=== PATIENT | female | born 1945 | race Caucasian/White ===

== ENCOUNTER 2019-08-19 10:47 | Outpatient (CLI) | payer MEDICARE, SELFPAY ==
[2019-08-19 11:33] LABS: Hemoglobin A1C 7.8 % (<5.7)
[2019-08-19 12:18] LABS: Alanine Aminotransferase 24 U/L (14-59); Albumin Level 3.7 g/dL (3.4-5.0); Alkaline Phosphatase 76 U/L (46-116); Anion Gap 16.6 mmol/L (7-16); Aspartate Amino Transferase 21 U/L (15-37); Bilirubin,Total 0.4 mg/dL (0.00-1.00); Blood Urea Nitrogen 18 mg/dL (7-18); Carbon Dioxide 24 mmol/L (21-32); Chloride 101 mmol/L (98-108); Estimated Glomerular Filt Rate 41; Glucose 157 mg/dL (70-99); Osmolality Calculated 290 mOsm/kg (285-295); Potassium 3.6 mmol/L (3.5-5.1); Sodium 138 mmol/L (136-145); Thyroid Stimulating Hormone 1.23 uIU/mL (0.36-3.74); Total Protein 7.1 g/dL (6.4-8.2)
== END 2019-08-19 10:48 | disposition home or self-care (01) ==
PROVIDERS: PCP Family Medicine; Visit Provider Family Medicine
DX: E03.9 Hypothyroidism, unspecified (principal); E11.9 Type 2 diabetes mellitus without complications; I10 Essential (primary) hypertension
CPT/HCPCS: 36415; 80053; 83036; 84443

== ENCOUNTER 2020-02-07 11:04 | Outpatient (CLI) | payer MEDICARE, SELFPAY ==
[2020-02-07 11:27] LABS: Basophils Absolute Auto 0.08 K/mm3 (0.00-0.10); Basophils Percent Auto 0.9 % (0.0-1.0); Eosinophils Absolute Auto 0.29 K/mm3 (0.02-0.50); Eosinophils Percent Auto 3.2 % (1.0-6.0); Hematocrit 38.3 % (35.0-42.0); Hemoglobin 12.2 g/dL (11.7-13.8); Immature Granulocyte Absolute 0.02 K/mm3 (0.00-0.00); Immature Granulocyte Percent A 0.2 % (0.0-0.0); Lymphocytes Absolute Auto 2.53 K/mm3 (1.10-4.50); Lymphocytes Percent Auto 28.3 % (18.0-42.0); Mean Corpuscular HGB Conc 31.9 g/dL (32.0-36.0); Mean Corpuscular Hemoglobin 30.7 pg (27.0-31.0); Mean Corpuscular Volume 96.5 fL (78.0-102.0); Mean Platelet Volume 10.1 fl (9.2-11.8); Monocytes Percent Auto 6.7 % (2.0-11.0); Neutrophils Absolute Auto 5.4 K/mm3 (1.7-7.2); Neutrophils Percent Auto 60.7 % (50.0-70.0); Platelet Count Result 249 K/mm3 (150-420); Red Blood Count 3.97 M/mm3 (4.20-5.40); Red Cell Distribution Width 12.2 % (11.6-14.4); White Blood Count 8.9 K/mm3 (4.8-10.8)
[2020-02-07 11:59] LABS: Creatinine Urine 102.52 mg/dL (40-278); MALB Creatinine Ratio 12.6 mg/g (0-30); Microalbumin Urine Random < 13.0 mg/L
[2020-02-07 12:01] LABS: Hemoglobin A1C 7.4 % (<5.7)
[2020-02-07 12:36] LABS: Alanine Aminotransferase 23 U/L (14-59); Albumin Level 3.8 g/dL (3.4-5.0); Alkaline Phosphatase 75 U/L (46-116); Anion Gap 13 mmol/L (8-16); Aspartate Amino Transferase 14 U/L (15-37); Bilirubin,Total 0.5 mg/dL (0.00-1.00); Blood Urea Nitrogen 24 mg/dL (7-18); Calcium 9.4 mg/dL (8.5-10.1); Carbon Dioxide 23 mmol/L (21-32); Chloride 106 mmol/L (98-108); Cholesterol 133 mg/dL (0-200); Estimated Glomerular Filt Rate 46; Glucose 187 mg/dL (70-99); HDL Direct 40 mg/dL (40-60); LDL Cholesterol Calculated 49 mg/dL (<130); Osmolality Calculated 303 mOsm/kg (285-295); Sodium 142 mmol/L (136-145); Thyroid Stimulating Hormone Reflex 0.69 u/IU/mL (0.36-3.74); Total Protein 7.1 g/dL (6.4-8.2); Triglycerides 218 mg/dL (0-150)
== END 2020-02-07 11:05 | disposition home or self-care (01) ==
LOC: CHSLAB 11:06
PROVIDERS: PCP Family Medicine; Visit Provider Family Medicine
DX: E11.9 Type 2 diabetes mellitus without complications (principal); I10 Essential (primary) hypertension; E78.5 Hyperlipidemia, unspecified; Z00.00 Encounter for general adult medical examination without abnormal findings; E03.9 Hypothyroidism, unspecified
CPT/HCPCS: 36415; 80053; 80061; 82043; 83036; 84443; 85025

== ENCOUNTER 2021-02-25 12:26 | Outpatient (CLI) | payer MEDICARE, SELFPAY ==
[2021-02-25 13:01] LABS: Basophils Absolute Auto 0.07 K/mm3 (0.00-0.10); Basophils Percent Auto 0.8 % (0.0-1.0); Eosinophils Absolute Auto 0.28 K/mm3 (0.02-0.50); Eosinophils Percent Auto 3.4 % (1.0-6.0); Hematocrit 37.7 % (35.0-42.0); Hemoglobin 12.2 g/dL (11.7-13.8); Immature Granulocyte Absolute 0.03 K/mm3 (0.00-0.00); Immature Granulocyte Percent A 0.4 % (0.0-0.0); Lymphocytes Absolute Auto 3.03 K/mm3 (1.10-4.50); Lymphocytes Percent Auto 36.3 % (18.0-42.0); Mean Corpuscular HGB Conc 32.4 g/dL (32.0-36.0); Mean Corpuscular Hemoglobin 30.7 pg (27.0-31.0); Mean Corpuscular Volume 94.7 fL (78.0-102.0); Mean Platelet Volume 10.4 fl (9.2-11.8); Monocytes Absolute Auto 0.69 K/mm3 (0.10-0.90); Monocytes Percent Auto 8.3 % (2.0-11.0); Neutrophils Absolute Auto 4.2 K/mm3 (1.7-7.2); Neutrophils Percent Auto 50.8 % (50.0-70.0); Platelet Count Result 246 K/mm3 (150-420); Red Blood Count 3.98 M/mm3 (4.20-5.40); Red Cell Distribution Width 12.3 % (11.6-14.4); White Blood Count 8.3 K/mm3 (4.8-10.8)
[2021-02-25 13:12] LABS: Creatinine Urine 62.76 mg/dL (40-278); MALB Creatinine Ratio 20.7 mg/g (0-30); Microalbumin Urine Random < 13.0 mg/L
[2021-02-25 13:35] LABS: Alanine Aminotransferase 25 U/L (14-59); Albumin Level 3.6 g/dL (3.4-5.0); Alkaline Phosphatase 75 U/L (46-116); Anion Gap 13 mmol/L (8-16); Aspartate Amino Transferase 17 U/L (15-37); Bilirubin,Total 0.6 mg/dL (0.00-1.00); Blood Urea Nitrogen 22 mg/dL (7-18); Carbon Dioxide 25 mmol/L (21-32); Chloride 106 mmol/L (98-108); Cholesterol 130 mg/dL (0-200); Estimated Glomerular Filt Rate 39; Glucose 147 mg/dL (70-99); HDL Direct 44 mg/dL (40-60); LDL Cholesterol Calculated 45 mg/dL (<130); Osmolality Calculated 304 mOsm/kg (285-295); Sodium 144 mmol/L (136-145); Total Protein 6.7 g/dL (6.4-8.2); Triglycerides 207 mg/dL (0-150)
[2021-02-25 13:44] LABS: Thyroid Stimulating Hormone Reflex 1.06 u/IU/mL (0.36-3.74)
== END 2021-02-25 12:27 | disposition home or self-care (01) ==
PROVIDERS: PCP Family Medicine; Visit Provider Nurse Practitioner
DX: E11.9 Type 2 diabetes mellitus without complications (principal); E78.5 Hyperlipidemia, unspecified; I10 Essential (primary) hypertension; E03.9 Hypothyroidism, unspecified
CPT/HCPCS: 36415; 80053; 80061; 82043; 83036; 84443; 85025

== ENCOUNTER 2021-08-30 12:23 | Outpatient (CLI) | payer MEDICARE, SELFPAY ==
[2021-08-30 13:03] LABS: Hemoglobin A1C 7.2 % (<5.7)
[2021-08-30 13:22] LABS: Alanine Aminotransferase 28 U/L (14-59); Albumin Level 3.5 g/dL (3.4-5.0); Alkaline Phosphatase 78 U/L (46-116); Anion Gap 10 mmol/L (8-16); Aspartate Amino Transferase 21 U/L (15-37); Bilirubin,Total 0.5 mg/dL (0.00-1.00); Blood Urea Nitrogen 21 mg/dL (7-18); Calcium 9.1 mg/dL (8.5-10.1); Carbon Dioxide 24 mmol/L (21-32); Chloride 106 mmol/L (98-108); Estimated Glomerular Filt Rate 38; Sodium 140 mmol/L (136-145); Total Protein 6.8 g/dL (6.4-8.2)
[2021-08-30 13:23] LABS: Thyroid Stimulating Hormone Reflex 0.58 u/IU/mL (0.36-3.74)
[2021-08-30 13:26] LABS: Glucose 178 mg/dL (70-99); Osmolality Calculated 297 mOsm/kg (285-295)
== END 2021-08-30 12:24 | disposition home or self-care (01) ==
LOC: CHSLAB 12:27
PROVIDERS: PCP Family Medicine; Visit Provider Family Medicine
DX: E11.9 Type 2 diabetes mellitus without complications (principal); I10 Essential (primary) hypertension
CPT/HCPCS: 36415; 80053; 83036; 84443

== ENCOUNTER 2021-10-29 12:56 | Outpatient (CLI) | payer MEDICARE, SELFPAY ==
[2021-10-29 13:24] LABS: Add Urine Microscopic? NO; Appearance Urine Clear (Clear); Bilirubin Urine Negative (Negative); Blood Urine Negative (Negative); Color Urine Light Yellow (Yellow); Creatinine Urine 15.58 mg/dL (40-278); Glucose Urine UA Negative (Negative); Ketones Urine Negative (Negative); Leukocyte Esterase Ur Negative LEU/UL (Negative); Nitrate Urine Negative (Negative); Protein Urine Negative (Negative); Specific Grav Ur <= 1.005 (1.010-1.020); Total Protein Urine Random < 6.0 mg/dL (0.0-11.9); Ur Ttl Prot Creatinine Ratio 0.39 mg/mg (0-0.20); Urobilinogen Urine 0.2 mg/dL (0.2-1.0); pH Urine 5.5 (5.0-8.0)
[2021-10-29 13:36] LABS: Albumin Level 3.7 g/dL (3.4-5.0); Anion Gap 8 mmol/L (8-16); Blood Urea Nitrogen 21 mg/dL (7-18); Calcium 9.3 mg/dL (8.5-10.1); Carbon Dioxide 24 mmol/L (21-32); Chloride 105 mmol/L (98-108); Estimated Glomerular Filt Rate 41; Glucose 147 mg/dL (70-99); Osmolality Calculated 290 mOsm/kg (285-295); Phosphorus 4.4 mg/dL (2.6-4.7); Potassium 4.1 mmol/L (3.5-5.1); Sodium 137 mmol/L (136-145)
[2021-10-29 14:22] LABS: Erythrocyte Sedimentation Rate 29 mm/hr (0-20)
[2021-11-02 11:41] LABS: Complement C3 154 mg/dL (83-193)
[2021-11-02 13:39] LABS: Parathyroid Intact 62 pg/mL (14-64)
[2021-11-02 13:59] LABS: Lambda Light Chain 35.4 mg/L (5.7-26.3)
[2021-11-02 21:37] LABS: Complement Total CH50 >60 U/mL (31-60)
[2021-11-03 05:01] LABS: Measured Kappa Chains <1.00 mg/dL (<2.00); Measured Lambda Chains <1.00 mg/dL (<2.00); Pro/Creat Ratio 94 mg/g creat (<=114)
[2021-11-15 14:27] LABS: Creat 24 Hr 0.53; Protein,total, 24 Hr Ur 50 mg/24h
== END 2021-10-29 12:57 | disposition home or self-care (01) ==
LOC: CHSLAB 12:59
PROVIDERS: PCP Family Medicine; Visit Provider Internal Medicine Nephrology
DX: N18.31 Chronic kidney disease, stage 3a (principal)
CPT/HCPCS: 36415; 80069; 81003; 82570; 83883; 83970; 84156; 85652; 86038; 86160; 86162; 86334; 86335

== ENCOUNTER 2021-11-02 13:47 | Outpatient (CLI) | payer MEDICARE, SELFPAY ==
--- NOTE | ~2021-11-02 | US_ITS ---
EXAMINATION: US retroperitoneal comp DATE: 11/02/2021 14:43 INDICATION: Stage IIIa chronic kidney disease TECHNIQUE: Multiple ultrasound grayscale images of the kidneys were obtained. COMPARISON: None. FINDINGS: The right kidney measures 10.1 x 5.6 x 5.3 cm. There is normal echogenicity of the right kidney. The left kidney measures 7.5 x 3.2 x 3.6 cm. Diffusely increased cortical echogenicity of the left kidney with a few subcentimeter anechoic cysts. There is no hydronephrosis in either kidney. No stones jose alberto ntified. The bladder is normal. IMPRESSION: 1. Normal right kidney and moderately atrophic and echogenic left kidney which is of indeterminate e tiology. No hydronephrosis. Reviewed, dictated and finalized at location A. IMPRESSION: 1. Normal right kidney and moderately atrophic and echogenic left kidney which is of indeterminate etiology. No hydronephrosis.
== END 2021-11-02 13:48 | disposition home or self-care (01) ==
LOC: CHSIMG 13:51
PROVIDERS: PCP Family Medicine; Visit Provider Internal Medicine Nephrology
DX: N18.31 Chronic kidney disease, stage 3a (principal)
CPT/HCPCS: 76770

== ENCOUNTER 2022-02-23 15:41 | Outpatient (CLI) | payer MEDICARE, SELFPAY ==
[2022-02-23 17:31] LABS: Albumin Level 3.7 g/dL (3.4-5.0); Anion Gap 10 mmol/L (8-16); Blood Urea Nitrogen 24 mg/dL (7-18); Calcium 9.2 mg/dL (8.5-10.1); Carbon Dioxide 26 mmol/L (21-32); Chloride 106 mmol/L (98-108); Estimated Glomerular Filt Rate 38; Glucose 135 mg/dL (70-99); Osmolality Calculated 300 mOsm/kg (285-295); Phosphorus 4.6 mg/dL (2.6-4.7); Potassium 4.3 mmol/L (3.5-5.1); Sodium 142 mmol/L (136-145)
== END 2022-02-23 15:42 | disposition home or self-care (01) ==
LOC: CHSLAB 15:45
PROVIDERS: PCP Family Medicine; Visit Provider Internal Medicine Nephrology
DX: N18.31 Chronic kidney disease, stage 3a (principal)
CPT/HCPCS: 36415; 80069

== ENCOUNTER 2022-02-25 15:29 | Outpatient (CLI) | payer MEDICARE, SELFPAY ==
[2022-02-25 15:55] LABS: Creatinine Urine 201.41 mg/dL (40-278); Total Protein Urine Random 32.7 mg/dL (0.0-11.9); Ur Ttl Prot Creatinine Ratio 0.16 mg/mg (0-0.20)
== END 2022-02-25 15:30 | disposition home or self-care (01) ==
PROVIDERS: PCP Family Medicine; Visit Provider Internal Medicine Nephrology
DX: N18.31 Chronic kidney disease, stage 3a (principal)
CPT/HCPCS: 82570; 84156

== ENCOUNTER 2022-03-16 13:29 | Outpatient (CLI) | payer MEDICARE, SELFPAY ==
[2022-03-16 13:56] LABS: Basophils Absolute Auto 0.08 K/mm3 (0.00-0.10); Basophils Percent Auto 0.8 % (0.0-1.0); Eosinophils Absolute Auto 0.27 K/mm3 (0.02-0.50); Eosinophils Percent Auto 2.7 % (1.0-6.0); Hematocrit 36.7 % (35.0-42.0); Immature Granulocyte Absolute 0.03 K/mm3 (0.00-0.00); Immature Granulocyte Percent A 0.3 % (0.0-0.0); Lymphocytes Percent Auto 29.4 % (18.0-42.0); Mean Corpuscular HGB Conc 32.7 g/dL (32.0-36.0); Mean Corpuscular Hemoglobin 31.1 pg (27.0-31.0); Mean Corpuscular Volume 95.1 fL (78.0-102.0); Mean Platelet Volume 9.6 fl (9.2-11.8); Monocytes Absolute Auto 0.72 K/mm3 (0.10-0.90); Monocytes Percent Auto 7.3 % (2.0-11.0); Neutrophils Absolute Auto 5.9 K/mm3 (1.7-7.2); Neutrophils Percent Auto 59.5 % (50.0-70.0); Platelet Count Result 270 K/mm3 (150-420); Red Blood Count 3.86 M/mm3 (4.20-5.40); Red Cell Distribution Width 12.5 % (11.6-14.4); White Blood Count 9.9 K/mm3 (4.8-10.8)
[2022-03-16 14:07] LABS: Hemoglobin A1C 7.7 % (<5.7)
[2022-03-16 14:24] LABS: Creatinine Urine 116.27 mg/dL (40-278); MALB Creatinine Ratio 11.1 mg/g (0-30); Microalbumin Urine Random < 13.0 mg/L
[2022-03-16 14:50] LABS: Alanine Aminotransferase 25 U/L (14-59); Albumin Level 3.7 g/dL (3.4-5.0); Alkaline Phosphatase 73 U/L (46-116); Anion Gap 9 mmol/L (8-16); Aspartate Amino Transferase 15 U/L (15-37); Bilirubin,Total 0.5 mg/dL (0.00-1.00); Blood Urea Nitrogen 27 mg/dL (7-18); Calcium 8.9 mg/dL (8.5-10.1); Carbon Dioxide 27 mmol/L (21-32); Chloride 103 mmol/L (98-108); Cholesterol 154 mg/dL (0-200); Estimated Glomerular Filt Rate 35; Glucose 161 mg/dL (70-99); HDL Direct 49 mg/dL (40-60); LDL Cholesterol Calculated 50 mg/dL (<130); Osmolality Calculated 296 mOsm/kg (285-295); Potassium 4.2 mmol/L (3.5-5.1); Sodium 139 mmol/L (136-145); Triglycerides 276 mg/dL (0-150); Vitamin B12 317 pg/mL (193-986)
[2022-03-20 17:29] LABS: Vitamin D 25 Hydroxy 20 ng/mL (30-100)
== END 2022-03-16 13:30 | disposition home or self-care (01) ==
LOC: CHSLAB 13:31
PROVIDERS: PCP Family Medicine; Visit Provider Family Medicine
DX: N18.30 Chronic kidney disease, stage 3 unspecified (principal); E53.8 Deficiency of other specified B group vitamins; E78.5 Hyperlipidemia, unspecified; E55.9 Vitamin D deficiency, unspecified; I10 Essential (primary) hypertension; E11.9 Type 2 diabetes mellitus without complications
CPT/HCPCS: 36415; 80053; 80061; 82043; 82306; 82607; 83036; 84443; 85025

== ENCOUNTER 2022-06-22 15:47 | Outpatient (CLI) | payer MEDICARE, SELFPAY ==
[2022-06-22 16:30] LABS: Hematocrit 36.7 % (35.0-42.0); Hemoglobin 11.8 g/dL (11.7-13.8); Mean Corpuscular HGB Conc 32.2 g/dL (32.0-36.0); Mean Corpuscular Hemoglobin 30.8 pg (27.0-31.0); Mean Corpuscular Volume 95.8 fL (78.0-102.0); Mean Platelet Volume 10.5 fl (9.2-11.8); Platelet Count Result 254 K/mm3 (150-420); Red Blood Count 3.83 M/mm3 (4.20-5.40); Red Cell Distribution Width 12.2 % (11.6-14.4); White Blood Count 10.5 K/mm3 (4.8-10.8)
[2022-06-22 16:50] LABS: Creatinine Urine 216.96 mg/dL (40-278); Total Protein Urine Random 22.2 mg/dL (0.0-11.9)
[2022-06-22 16:54] LABS: Albumin Level 3.8 g/dL (3.4-5.0); Anion Gap 11 mmol/L (8-16); Blood Urea Nitrogen 26 mg/dL (7-18); Calcium 9.5 mg/dL (8.5-10.1); Carbon Dioxide 26 mmol/L (21-32); Chloride 105 mmol/L (98-108); Estimated Glomerular Filt Rate 40; Glucose 142 mg/dL (70-99); Osmolality Calculated 300 mOsm/kg (285-295); Phosphorus 4.6 mg/dL (2.6-4.7); Potassium 4.8 mmol/L (3.5-5.1); Sodium 142 mmol/L (136-145)
[2022-06-26 21:30] LABS: Parathyroid Intact 75 pg/mL (14-64)
== END 2022-06-22 15:48 | disposition home or self-care (01) ==
LOC: CHSLAB 15:50
PROVIDERS: PCP Internal Medicine Nephrology; Visit Provider Internal Medicine Nephrology
DX: E78.5 Hyperlipidemia, unspecified (principal); N18.32 Chronic kidney disease, stage 3b
CPT/HCPCS: 36415; 80069; 82570; 83970; 84156; 85027

== ENCOUNTER 2022-12-14 16:05 | Outpatient (CLI) | payer MEDICARE, SELFPAY ==
[2022-12-14 18:38] LABS: Hematocrit 36.3 % (37.0-47.0); Hemoglobin 11.6 g/dL (12.0-15.0); Mean Corpuscular Hemoglobin 30.6 pg (26-34); Mean Corpuscular Volume 95.8 fl (80-100); Mean Platelet Volume 10.7 fl (7.4-10.4); Platelet Count Result 266 k/mm3 (150-375); Red Blood Count 3.79 M/mm3 (4.2-5.4); Red Cell Distribution Width 12.4 % (11.5-14.5); White Blood Count 10.7 K/mm3 (4.5-10.0)
[2022-12-14 19:32] LABS: Alanine Aminotransferase 26 U/L (6-35); Albumin Level 4.2 g/dL (3.5-5.1); Alkaline Phosphatase 79 U/L (38-126); Anion Gap 10 mmol/L (8-16); Aspartate Amino Transferase 34 U/L (14-36); Bilirubin,Total 0.4 mg/dL (0.2-1.3); Blood Urea Nitrogen 29 mg/dL (7-17); Calcium 9.3 mg/dL (8.4-10.2); Carbon Dioxide 22 mmol/L (22-30); Chloride 109 mmol/L (98-107); Estimated Glomerular Filt Rate 40; Glucose 139 mg/dL (65-110); Potassium 4.1 mmol/L (3.4-5.0); Sodium 141 mmol/L (137-145)
[2022-12-14 19:39] LABS: Parathyroid Intact 80.9 pg/mL (7.5-53.5)
[2022-12-14 20:14] LABS: Vitamin D 25 Hydroxy 63.2 ng/mL
[2022-12-14 21:51] LABS: Hemoglobin A1C 7.7 % (<5.7)
== END 2022-12-14 16:06 | disposition home or self-care (01) ==
LOC: ANHGOSHLAB 16:07
PROVIDERS: PCP Family Medicine; Visit Provider Family Medicine
DX: E21.1 Secondary hyperparathyroidism, not elsewhere classified (principal); E78.5 Hyperlipidemia, unspecified; N18.32 Chronic kidney disease, stage 3b; E11.22 Type 2 diabetes mellitus with diabetic chronic kidney disease; I12.9 Hypertensive chronic kidney disease with stage 1 through stage 4 chronic kidney disease, or unspecified chronic kidney disease; E03.9 Hypothyroidism, unspecified
CPT/HCPCS: 36415; 80053; 80069; 82306; 83036; 83970; 84443; 85027

== ENCOUNTER 2023-01-04 18:09 | Outpatient (CLI) | payer MEDICARE, SELFPAY ==
[2023-01-04 18:35] LABS: Hematocrit 36.2 % (35.0-42.0); Hemoglobin 11.6 g/dL (11.7-13.8); Mean Corpuscular Hemoglobin 30.4 pg (27.0-31.0); Mean Corpuscular Volume 94.8 fL (78.0-102.0); Mean Platelet Volume 10.1 fl (9.2-11.8); Platelet Count Result 283 K/mm3 (150-420); Red Blood Count 3.82 M/mm3 (4.20-5.40); Red Cell Distribution Width 12.6 % (11.6-14.4); White Blood Count 10.8 K/mm3 (4.8-10.8)
[2023-01-04 19:15] LABS: Albumin Level 3.5 g/dL (3.4-5.0); Anion Gap 11 mmol/L (8-16); Blood Urea Nitrogen 31 mg/dL (7-18); Calcium 9.5 mg/dL (8.5-10.1); Carbon Dioxide 26 mmol/L (21-32); Chloride 105 mmol/L (98-108); Estimated Glomerular Filt Rate 38; Glucose 125 mg/dL (70-99); Osmolality Calculated 301 mOsm/kg (285-295); Phosphorus 4.7 mg/dL (2.6-4.7); Potassium 4.3 mmol/L (3.5-5.1); Sodium 142 mmol/L (136-145)
[2023-01-08 16:31] LABS: Vitamin D 25 Hydroxy 45 ng/mL (30-100)
[2023-01-09 20:23] LABS: Parathyroid Intact 79 pg/mL (14-64)
== END 2023-01-04 18:10 | disposition home or self-care (01) ==
PROVIDERS: PCP Family Medicine; Visit Provider Internal Medicine Nephrology
DX: N18.32 Chronic kidney disease, stage 3b (principal); E21.1 Secondary hyperparathyroidism, not elsewhere classified; E78.5 Hyperlipidemia, unspecified
CPT/HCPCS: 36415; 80069; 82306; 83970; 85027

== ENCOUNTER 2023-01-05 08:53 | Outpatient (CLI) | payer MEDICARE, SELFPAY ==
[2023-01-05 09:08] LABS: Creatinine Urine 119.46 mg/dL (40-278); Total Protein Urine Random 18.9 mg/dL (0.0-11.9); Ur Ttl Prot Creatinine Ratio 0.16 mg/mg (0-0.20)
== END 2023-01-05 08:54 | disposition home or self-care (01) ==
LOC: CHSLAB 08:55
PROVIDERS: PCP Family Medicine; Visit Provider Internal Medicine Nephrology
DX: E21.1 Secondary hyperparathyroidism, not elsewhere classified (principal); N18.32 Chronic kidney disease, stage 3b
CPT/HCPCS: 82570; 84156

== ENCOUNTER 2023-07-06 12:38 | Outpatient (CLI) | payer MEDICARE, SELFPAY ==
[2023-07-06 13:09] LABS: Basophils Absolute Auto 0.06 K/mm3 (0.00-0.10); Basophils Percent Auto 0.7 % (0.0-1.0); Eosinophils Absolute Auto 0.17 K/mm3 (0.02-0.50); Eosinophils Percent Auto 1.9 % (1.0-6.0); Hematocrit 37.9 % (35.0-42.0); Hemoglobin 11.9 g/dL (11.7-13.8); Immature Granulocyte Absolute 0.03 K/mm3 (0.00-0.00); Immature Granulocyte Percent A 0.3 % (0.0-0.0); Lymphocytes Absolute Auto 2.57 K/mm3 (1.10-4.50); Lymphocytes Percent Auto 28.1 % (18.0-42.0); Mean Corpuscular HGB Conc 31.4 g/dL (32-36); Mean Corpuscular Hemoglobin 28.5 pg (27.0-31.0); Mean Corpuscular Volume 90.7 fL (78.0-102.0); Mean Platelet Volume 9.8 fl (9.2-11.8); Monocytes Absolute Auto 0.67 K/mm3 (0.10-0.90); Monocytes Percent Auto 7.3 % (2.0-11.0); Neutrophils Absolute Auto 5.64 K/mm3 (1.70-7.20); Neutrophils Percent Auto 61.7 % (50.0-70.0); Platelet Count Result 248 K/mm3 (150-420); Red Blood Count 4.18 M/mm3 (4.20-5.40); Red Cell Distribution Width 13.1 % (11.6-14.4); White Blood Count 9.1 K/mm3 (4.8-10.8)
[2023-07-06 13:27] LABS: Hemoglobin A1C 7.9 % (<5.7)
[2023-07-06 14:04] LABS: Alanine Aminotransferase 31 U/L (14-59); Albumin Level 3.7 g/dL (3.4-5.0); Alkaline Phosphatase 75 U/L (46-116); Anion Gap 11 mmol/L (4-12); Aspartate Amino Transferase 21 U/L (15-37); Bilirubin,Total 0.5 mg/dL (0.00-1.00); Blood Urea Nitrogen 28 mg/dL (7-18); Calcium 9.6 mg/dL (8.5-10.1); Carbon Dioxide 26 mmol/L (21-32); Chloride 104 mmol/L (98-108); Cholesterol 133 mg/dL (0-200); Estimated Glomerular Filt Rate 33; Free T3 1.74 pg/mL (2.18-3.98); Glucose 177 mg/dL (70-99); HDL Direct 50 mg/dL (40-60); LDL Cholesterol Calculated 46 mg/dL (<130); Osmolality Calculated 301 mOsm/kg (285-295); Phosphorus 4.5 mg/dL (2.6-4.7); Potassium 3.9 mmol/L (3.5-5.1); Sodium 141 mmol/L (136-145); Thyroid Stimulating Hormone 0.84 uIU/mL (0.36-3.74); Total Protein 6.9 g/dL (6.4-8.2); Triglycerides 186 mg/dL (0-150)
[2023-07-06 17:36] LABS: Creatinine Urine 173.16 mg/dL (40-278); Microalbumin Urine Random 19.1 mg/L
[2023-07-06 20:00] LABS: Creatinine Urine 173.16 mg/dL (40-278); Total Protein Urine Random 22.9 mg/dL (0.0-11.9); Ur Ttl Prot Creatinine Ratio 0.13 mg/mg (0-0.20)
[2023-07-07 16:13] LABS: Parathyroid Intact 76 pg/mL (16-77)
[2023-07-09 12:08] LABS: Vitamin D 1,25 (OH)2 Total 17 pg/mL (18-72); Vitamin D2 1,25 (OH)2 <8 pg/mL; Vitamin D3 1,25 (OH)2 17 pg/mL
== END 2023-07-06 12:39 | disposition home or self-care (01) ==
LOC: CHSLAB 12:40
PROVIDERS: Internal Medicine Nephrology; PCP Family Medicine; Visit Provider Nurse Practitioner Family
DX: E03.9 Hypothyroidism, unspecified (principal); E78.5 Hyperlipidemia, unspecified; E21.1 Secondary hyperparathyroidism, not elsewhere classified; I12.9 Hypertensive chronic kidney disease with stage 1 through stage 4 chronic kidney disease, or unspecified chronic kidney disease; N18.32 Chronic kidney disease, stage 3b; E55.9 Vitamin D deficiency, unspecified; E11.9 Type 2 diabetes mellitus without complications; R79.89 Other specified abnormal findings of blood chemistry
CPT/HCPCS: 36415; 80053; 80061; 82043; 82570; 82652; 83036; 83970; 84100; 84156; 84439; 84443; 84481; 85025

== ENCOUNTER 2024-01-03 15:11 | Outpatient (CLI) | payer MEDICARE, SELFPAY ==
[2024-01-03 15:29] LABS: Hematocrit 37.6 % (35.0-42.0); Hemoglobin 12.1 g/dL (11.7-13.8); Mean Corpuscular HGB Conc 32.2 g/dL (32-36); Mean Corpuscular Hemoglobin 29.7 pg (27.0-31.0); Mean Corpuscular Volume 92.4 fL (78.0-102.0); Mean Platelet Volume 9.7 fl (9.2-11.8); Platelet Count Result 228 K/mm3 (150-420); Red Blood Count 4.07 M/mm3 (4.20-5.40); Red Cell Distribution Width 12.7 % (11.6-14.4); White Blood Count 10.9 K/mm3 (4.8-10.8)
[2024-01-03 16:00] LABS: Albumin Level 3.4 g/dL (3.4-5.0); Anion Gap 13 mmol/L (4-12); Blood Urea Nitrogen 24 mg/dL (7-18); Calcium 9.5 mg/dL (8.5-10.1); Carbon Dioxide 25 mmol/L (21-32); Chloride 106 mmol/L (98-108); Estimated Glomerular Filt Rate 36; Glucose 170 mg/dL (70-99); Osmolality Calculated 306 mOsm/kg (285-295); Phosphorus 4.4 mg/dL (2.6-4.7); Sodium 144 mmol/L (136-145)
[2024-01-04 13:58] LABS: Parathyroid Intact 47 pg/mL (16-77)
== END 2024-01-03 15:12 | disposition home or self-care (01) ==
PROVIDERS: PCP Family Medicine; Visit Provider Internal Medicine Nephrology
DX: N18.32 Chronic kidney disease, stage 3b (principal)
CPT/HCPCS: 36415; 80069; 83970; 85027

== ENCOUNTER 2024-01-05 13:22 | Outpatient (CLI) | payer MEDICARE, SELFPAY ==
[2024-01-05 13:35] LABS: Total Protein Urine Random 8.2 mg/dL (0.0-11.9); Ur Ttl Prot Creatinine Ratio 0.11 mg/mg (0-0.20)
== END 2024-01-05 13:23 | disposition home or self-care (01) ==
LOC: CHSLAB 13:23
PROVIDERS: PCP Family Medicine; Visit Provider Internal Medicine Nephrology
DX: N18.32 Chronic kidney disease, stage 3b (principal)
CPT/HCPCS: 82570; 84156

== ENCOUNTER 2024-01-23 14:56 | Outpatient (CLI) | payer MEDICARE, SELFPAY ==
[2024-01-23 17:12] LABS: Cholesterol 141 mg/dL (0-200); Free T4 Free Thyroxine 1.21 ng/dL (0.76-1.46); HDL Direct 45 mg/dL (40-60); LDL Cholesterol Calculated 41 mg/dL (<130); Thyroid Stimulating Hormone 0.43 uIU/mL (0.36-3.74); Triglycerides 273 mg/dL (0-150)
== END 2024-01-23 14:57 | disposition home or self-care (01) ==
PROVIDERS: PCP Family Medicine; Visit Provider Nurse Practitioner Family
DX: E78.5 Hyperlipidemia, unspecified (principal); E11.9 Type 2 diabetes mellitus without complications; E03.9 Hypothyroidism, unspecified
CPT/HCPCS: 36415; 80061; 83036; 84439; 84443

== ENCOUNTER 2024-08-08 14:26 | Outpatient (CLI) | payer MEDICARE, SELFPAY ==
[2024-08-08 14:46] LABS: Hematocrit 35.4 % (35.0-42.0); Hemoglobin 11.1 g/dL (11.7-13.8); Mean Corpuscular HGB Conc 31.4 g/dL (32-36); Mean Corpuscular Hemoglobin 27.9 pg (27.0-31.0); Mean Corpuscular Volume 88.9 fL (78.0-102.0); Mean Platelet Volume 9.7 fl (9.2-11.8); Platelet Count Result 222 K/mm3 (150-420); Red Blood Count 3.98 M/mm3 (4.20-5.40); Red Cell Distribution Width 14.5 % (11.6-14.4); White Blood Count 10.4 K/mm3 (4.8-10.8)
[2024-08-08 15:42] LABS: Albumin Level 3.8 g/dL (3.5-5.1); Anion Gap 7 mmol/L (4-12); Blood Urea Nitrogen 18 mg/dL (7-17); Calcium 9.4 mg/dL (8.4-10.2); Carbon Dioxide 23 mmol/L (22-30); Chloride 108 mmol/L (98-107); Estimated Glomerular Filt Rate 53; Glucose 216 mg/dL (65-110); Osmolality Calculated 294 mOsm/kg (285-295); Phosphorus 3.2 mg/dL (2.5-4.5); Potassium 4.6 mmol/L (3.4-5.0); Sodium 138 mmol/L (137-145)
[2024-08-08 15:58] LABS: Vitamin D 25 Hydroxy 71.6 ng/mL
[2024-08-09 13:34] LABS: Parathyroid Intact 50 pg/mL (16-77)
== END 2024-08-08 14:27 | disposition home or self-care (01) ==
LOC: CHSLAB 14:28
PROVIDERS: PCP Family Medicine; Visit Provider Internal Medicine Nephrology
DX: N18.32 Chronic kidney disease, stage 3b (principal); E55.9 Vitamin D deficiency, unspecified
CPT/HCPCS: 36415; 80069; 82306; 83970; 85027

== ENCOUNTER 2024-08-09 14:24 | Outpatient (NON) | payer MEDICARE, SELFPAY ==
[2024-08-09 15:37] LABS: Creatinine Urine 115.2 mg/dL; Total Protein Urine Random 10 mg/dL; Ur Ttl Prot Creatinine Ratio 0.09 mg/mg (0-0.20)
== END 2024-08-09 14:25 | disposition home or self-care (01) ==
LOC: CHSLAB 14:28
PROVIDERS: PCP Internal Medicine Nephrology; Visit Provider Internal Medicine Nephrology
DX: E55.9 Vitamin D deficiency, unspecified (principal); N18.32 Chronic kidney disease, stage 3b
CPT/HCPCS: 82570; 84156

== ENCOUNTER 2024-11-08 10:38 | Outpatient (CLI) | payer MEDICARE, SELFPAY ==
[2024-11-08 11:04] LABS: Hematocrit 36.3 % (35.0-42.0); Hemoglobin 11.7 g/dL (11.7-13.8); Immature Granulocyte Percent A 0.3 % (0.0-0.0); Lymphocytes Absolute Auto 3.46 K/mm3 (1.10-4.50); Mean Corpuscular HGB Conc 32.2 g/dL (32-36); Mean Corpuscular Hemoglobin 29.1 pg (27.0-31.0); Mean Corpuscular Volume 90.3 fL (78.0-102.0); Nucleated Red Blood Cells Absolute Auto 0.00 K/mm3 (0.00-0.00); Nucleated Red Blood Cells Perc 0.0 % (0-0.0); Platelet Count Result 254 K/mm3 (150-420); Red Blood Count 4.02 M/mm3 (4.20-5.40); White Blood Count 11.1 K/mm3 (4.8-10.8)
[2024-11-08 11:23] LABS: Hemoglobin A1C 9.2 % (<5.7)
[2024-11-08 11:46] LABS: Alanine Aminotransferase 26 U/L (6-35); Albumin Level 4.1 g/dL (3.5-5.1); Alkaline Phosphatase 73 U/L (38-126); Anion Gap 13 mmol/L (4-12); Aspartate Amino Transferase 30 U/L (14-36); Bilirubin,Total 0.6 mg/dL (0.2-1.3); Blood Urea Nitrogen 24 mg/dL (7-17); Calcium 10.1 mg/dL (8.4-10.2); Carbon Dioxide 24 mmol/L (22-30); Chloride 105 mmol/L (98-107); Cholesterol 141 mg/dL (0-200); Estimated Glomerular Filt Rate 42; Glucose 137 mg/dL (65-110); HDL Direct 40 mg/dL; Magnesium 1.5 mg/dL (1.6-2.3); Osmolality Calculated 300 mOsm/kg (285-295); Potassium 4.4 mmol/L (3.4-5.0); Sodium 142 mmol/L (137-145); Total Protein 6.6 g/dL (6.3-8.2); Triglycerides 278 mg/dL (<150)
[2024-11-08 12:15] LABS: Thyroid Stimulating Hormone Reflex 0.599 uIU/mL (0.465-4.68)
[2024-11-08 12:35] LABS: Vitamin B12 202.0 pg/mL (239-931)
== END 2024-11-08 10:39 | disposition home or self-care (01) ==
LOC: CHSLAB 10:40
PROVIDERS: PCP Family Medicine; Visit Provider Nurse Practitioner Family
DX: E11.9 Type 2 diabetes mellitus without complications (principal); I10 Essential (primary) hypertension; E78.5 Hyperlipidemia, unspecified
CPT/HCPCS: 36415; 80053; 80061; 82607; 83036; 83735; 84443; 85025

== ENCOUNTER 2024-11-11 17:21 | Outpatient (NON) | payer MEDICARE, SELFPAY ==
--- OUTSIDE RECORDS SUMMARY | 2024-11-11 17:24 | XMS_ITS | Clinical Summary ---
Author Organization [facility] Address [address] [address] Phone Care Team Providers Care Senior Production Manager Name Role Phone Natalia Sparrow MD Primary Care Provider Allergies No known active allergies Medications atenolol (TENORMIN) 100 MG tablet 10/21/2021 Active atorvastatin (LIPITOR) 20 MG tablet 08/21/2021 Active glimepiride (AMARYL) 2 MG tablet 10/06/2021 Active levothyroxine (SYNTHROID) 100 MCG tablet 08/21/2021 Active losartan-hydroCHLO ROthiazide (HYZAAR) 100-25 MG per tablet 09/01/2021 Active metFORMIN (GLUCOPHAGE) 1000 MG tablet 10/21/2021 Active Active Problems Problem Noted Date Diagnosed Date Chronic kidney disease stage 3A 10/27/2021 Essential hypertension 10/27/2021 Diabetes mellitus without me ntion of complication, type II or unspecified type, not stated as uncontrolled 10/27/2021 Dyslipidemia 10/27/2021 Social History Tobacco Use Types Packs/Day Years Used Date Smoking Tobacco: Never Smokeless Tobacco: Never Alcohol Use Standard Drinks/Week Comments Not Currently 0 (1 standard drink = 0.6 oz pur e alcohol) Comments Unknown Sex and Gender Information Value Date Recorded Sex Assigned at Not on file Legal Sex Female 9:21 AM MDT Gender Identity Not on file Sexual Orientation Not on file Last Filed Vital Signs Vital Sign Reading Time Taken Comments Blood Pressure 124/70 10/27/2021 11:12 AM CDT Pulse 72 10/27/2021 11:12 AM CDT Temperature 36.2 C (97.2 F) 10/27/2021 11:12 AM CDT Respiratory Rate - - Oxygen Saturation - - Inhaled Oxygen Concentration - - Weight 86.6 kg (191 lb) 10/27/2021 11:12 AM CDT Height 149.9 cm (4' 11) 10/27/2021 11:12 AM CDT Body Mass Index 38.58 10/27/2021 11:12 AM CDT Plan of Treatment Health Maintenance Due Date Last Done Comments Pneumococcal PPSV23/PCV13 65 + Years / Low and Medium Risk (1 of 2 - PCV) 1993 Influenza Vaccine (#1) 2024 Insurance MEDICARE [facility] [id number] MEDICARE [facility] [id number] [facility] Care Teams Senior Production Manager Relationship Specialty Start Date End Date Natalia Sparrow MD [address] [place] [address] (work) PCP - General Internal Medicine 08/26/21
[2024-11-11 17:45] LABS: MALB Creatinine Ratio 20.5 mg/g (0-30)
== END 2024-11-11 17:22 | disposition home or self-care (01) ==
LOC: CHSLAB 17:23
PROVIDERS: PCP Family Medicine; Visit Provider Nurse Practitioner Family
DX: E11.9 Type 2 diabetes mellitus without complications (principal)
CPT/HCPCS: 82043

== ENCOUNTER 2025-01-01 14:49 | Outpatient (CLI) | payer MEDICARE, SELFPAY ==
[2025-01-01 15:26] LABS: Magnesium 1.8 mg/dL (1.6-2.3)
--- OUTSIDE RECORDS SUMMARY | 2025-01-01 16:46 | XMS_ITS | Clinical Summary ---
Author Organization [facility] Address [address] [address] Phone Care Team Providers Care Classroom Coordinator Name Role Phone Natalia Sparrow MD Primary [...] 1993 Influenza Vaccine (#1) 2024 Insurance MEDICARE MEDICARE [facility] Care Teams Classroom Coordinator Relationship Specialty Start Date End Date Natalia Sparrow MD [address] [place] [address] (work) PCP - General Internal Medicine 08/26/21
== END 2025-01-01 14:50 | disposition home or self-care (01) ==
LOC: CHSLAB 14:50
PROVIDERS: PCP Family Medicine; Visit Provider Nurse Practitioner Family
DX: E83.42 Hypomagnesemia (principal); E55.9 Vitamin D deficiency, unspecified
CPT/HCPCS: 36415; 82306; 83735